=== PATIENT | male | born 1945 | race Caucasian/White ===

== ENCOUNTER 2017-09-17 11:20 | Outpatient (CLI) | payer MEDICARE, BC ==
[2017-09-17 12:24] LABS: #Basophils 0.1 thou/uL (0.0-0.2); #Eosinphils 0.1 thou/uL (0.0-0.7); #Lymphocytes 1.3 thou/uL (1.20-3.40); #Monocytes 0.8 thou/uL (0.11-0.59); #Neutrophils 4.6 thou/uL (1.40-6.50); %Basophils 0.9 % (0.0-1.0); %Eosinophils 1.2 % (0.0-10.0); %Lymphocytes 18.6 % (21.0-51.0); %Monocytes 11.3 % (0.0-10.0); %Neutrophils 67.9 % (42.0-75.0); Hemoglobin 15.7 g/dL (14.0-18.0); Mean Corpuscular HGB CONC 34.1 g/dL (32.0-36.0); Mean Corpuscular Hemoglobin 32.1 pg (27.0-31.0); Mean Corpuscular Volume 94.2 fl (80.0-94.0); Mean Platelet Volume 8.2 fL (7.4-10.4); Platelet Count 172 thou/uL (130-400); RBC Distribution Width 11.8 % (11.5-14.5); Red Blood Cell (RBC) Count 4.89 mill/uL (4.70-6.10); White Blood Cell (WBC) Count 6.8 thou/uL (4.8-10.8)
[2017-09-17 13:08] LABS: Anion Gap 13 mmol/L (10-20); BUN (Urea Nitrogen) 21 mg/dL (8.4-25.7); Calc. Creatinine Clearance 0 mL/min (70-130); Calcium 10.9 mg/dL (7.8-10.44); Carbon Dioxide 27 mmol/L (23-31); Chloride 104 mmol/L (98-107); Estimated GFR-MDRD 53; Glucose 112 mg/dL (83-110); Sodium 139 mmol/L (136-145)
== END 2017-09-17 11:21 | disposition home or self-care (01) ==
LOC: LABBT 11:20
PROVIDERS: ATTEND Surgery
DX: Z01.818 Encounter for other preprocedural examination (principal); K40.20 Bilateral inguinal hernia, without obstruction or gangrene, not specified as recurrent
CPT/HCPCS: 80048; 85025; 93005; 93010

== ENCOUNTER 2017-09-24 11:36 | Day surgery (SDC) | payer MEDICARE, BC ==
[2017-09-17 11:38] VITALS: BMI 30.9
[2017-09-24] MEDS ORDERED: Bupivacaine 0.25% HCL 30 ML VIAL ONE (12:03)
[2017-09-24] MEDS ORDERED: Midazolam HCl 2 mg/2 ml Vial ONE (12:25)
[2017-09-24] MEDS ORDERED: CEFAZOLIN/Water 2 GM/20 ML SYRINGE ONE (12:25)
[2017-09-24] MEDS ORDERED: Fentanyl 100 MCG/2 ML VIAL ONE (12:44)
[2017-09-24] MEDS ORDERED: Ketorolac Tromethamine 30 MG/ML VIAL ONE (13:31)
[2017-09-24] MEDS ORDERED: Dexamethasone 20 MG/5 ML VIAL ONE (13:31)
[2017-09-24] MEDS ORDERED: Propofol 200 MG/20 ML VIAL ONE (13:31)
[2017-09-24] MEDS ORDERED: Ondansetron HCl/PF 4 MG/2 ML Vial ONE (13:31)
[2017-09-24] MEDS ORDERED: Lidocaine 1% PF 5 ML VIAL ONE (13:31)
[2017-09-24] MEDS ORDERED: Glycopyrrolate 0.2 MG/ML 5 ML SYRINGE ONE (13:31)
[2017-09-24] MEDS ORDERED: Promethazine HCl 25 MG/ML VIAL ONE (15:42)
[2017-09-24] MEDS ORDERED: HYDROcodone/Acetaminophen 5/325 mg Tablet ONE (16:32)
--- NOTE | 2017-09-27 14:09 | OP ---
DATE OF SURGERY: 09/24/2017 PREOPERATIVE DIAGNOSIS: Bilateral inguinal hernia. POSTOPERATIVE DIAGNOSIS: Bilateral inguinal hernia. PROCEDURE: Laparoscopic da Keshav bilateral inguinal hernia repair with mesh, ProGrip. SURGEON: Dr. Crow Allison. ANESTHESIA: General. ESTIMATED BLOOD LOSS: Minimal. COMPLICATIONS: None. TECHNIQUE: The patient was taken to the operating room and placed supine on the table. After genera l anesthetic was obtained, the bilateral Groves catheter was placed. The abdomen and bilateral groins were shaved, prepped and draped in a sterile fashion. Curved incision made above the umbilicus. Ca utery was used to dissect down to and score the fascia. Abdominal cavity was entered bluntly using a Amy clamp followed by 12-mm Ethicon trocar. High-flow pneumoperitoneum was obtained. Left and ri ght abdominal 8 mm robot trocars were placed. The patient was placed in Trendelenburg position. The peritoneum was opened in the bilateral groins. The preperitoneal space was bluntly dissected all th e way down to the pubic tubercle medially and anterior superior iliac crest laterally. The iliopecti jesica line was fully exposed. The indirect hernia sacs were bilateral dissected high after the defect s up onto the peritoneum and full skeletonization of the cord structures was performed. There was no direct hernia and there was no femoral hernia, bilateral ProGrip mesh was brought in the medial labe led aspect was placed over the pubic tubercle. The mesh was unfolded to completely cover the direct, indirect, and femoral areas. The peritoneum is bilateral reapproximated using running Stratafix sut ure. All port sites were infiltrated using local anesthetic. All ports were removed under camera vi sualization without bleeding. Pneumoperitoneum was let down. PDS was used to close the fascial defe ct above the umbilicus. All incisions were irrigated and closed using 4-0 Monocryl and Dermabond. T he patient was en route to recovery in stable condition. All instrument counts, needle counts, and l ap counts were correct.
== END 2017-09-24 17:30 | disposition home or self-care (01) ==
LOC: SDC 11:36
PROVIDERS: ATTEND Surgery
PROC: 0YUA4JZ Supplement Bilateral Inguinal Region with Synthetic Substitute, Percutaneous Endoscopic Approach (ICD-10-PCS; principal; 2017-09-24)
PROC: 8E0W4CZ Robotic Assisted Procedure of Trunk Region, Percutaneous Endoscopic Approach (ICD-10-PCS; 2017-09-24)
DX: K40.20 Bilateral inguinal hernia, without obstruction or gangrene, not specified as recurrent (principal); E78.5 Hyperlipidemia, unspecified; I25.10 Atherosclerotic heart disease of native coronary artery without angina pectoris; F41.9 Anxiety disorder, unspecified; Z79.82 Long term (current) use of aspirin; Z79.899 Other long term (current) drug therapy; Z98.61 Coronary angioplasty status; Z95.0 Presence of cardiac pacemaker; Z95.818 Presence of other cardiac implants and grafts; Z90.79 Acquired absence of other genital organ(s); Z98.890 Other specified postprocedural states
CPT/HCPCS: J0131; J1100; J1885; J2001; J2250; J2405; J2550; J2704; J3010; S0020

== ENCOUNTER 2020-12-19 16:43 | Outpatient (CLI) | payer MEDICARE ==
[2020-12-19 17:20] LABS: Anion Gap 15 mmol/L (10-20); BUN (Urea Nitrogen) 22 mg/dL (8.4-25.7); Calc. Creatinine Clearance 0 mL/min (70-130); Calcium 9.5 mg/dL (7.8-10.44); Carbon Dioxide 25 mmol/L (23-31); Chloride 105 mmol/L (98-107); Glucose 138 mg/dL (83-110); Potassium 4.5 mmol/L (3.5-5.1); Sodium 140 mmol/L (136-145)
[2020-12-19 17:29] LABS: Hemoglobin 12.9 g/dL (13.5-17.5); Mean Corpuscular HGB CONC 34.1 g/dL (32.0-36.0); Mean Corpuscular Hemoglobin 31.5 pg (27.0-33.0); Mean Corpuscular Volume 92.4 fl (81.2-95.1); Mean Platelet Volume 11.5 fl (7.4-10.4); Platelet Count 163 10x3/uL (150-450); RBC Distribution Width 12.2 % (11.5-14.5); Red Blood Cell (RBC) Count 4.09 10x6/uL (4.32-5.72); White Blood Cell (WBC) Count 6.5 10x3/uL (3.5-10.5)
[2020-12-20 01:53] LABS: SARS-CoV-2 PCR by NAA Not Detected (NotDetected)
== END 2020-12-19 16:44 | disposition home or self-care (01) ==
LOC: LABBT 16:43
PROVIDERS: ATTEND Orthopaedic Surgery
DX: Z01.818 Encounter for other preprocedural examination (principal); S82.001A Unspecified fracture of right patella, initial encounter for closed fracture; Z20.822 Contact with and (suspected) exposure to COVID-19
CPT/HCPCS: 80048; 85027; U0003; U0005; 87635; 93005; 93010

== ENCOUNTER 2020-12-23 10:00 | Observation (INO) | payer MEDICARE, OTHER ==
[2020-12-23] MEDS ORDERED: Fentanyl 100 MCG/2 ML VIAL ONE ×3 (11:51→15:35)
[2020-12-23] MEDS ORDERED: PROPOFOL 200 MG/20 ML VIAL ONE (13:11)
[2020-12-23] MEDS ORDERED: Dexamethasone 20 MG/5 ML VIAL ONE (13:11)
[2020-12-23] MEDS ORDERED: Lidocaine 1% PF 5 ML VIAL ONE (13:11)
[2020-12-23] MEDS ORDERED: Ondansetron PF 4 MG/2 ML Vial ONE ×2 (13:11→15:10)
[2020-12-23] MEDS ORDERED: Bupivacaine PF 0.5% 30 ML VIAL ONE (14:08)
[2020-12-23] MEDS ORDERED: HYDROcodone/Acetaminophen 10/325 mg Tablet PO PRN (14:39)
[2020-12-23] MEDS ORDERED: Morphine 2 MG/ML VIAL SLOW IVP PRN (14:39)
[2020-12-23] MEDS ORDERED: Ondansetron PF 4 MG/2 ML Vial SLOW IVP PRN (14:39)
[2020-12-23] MEDS ORDERED: Communication Order-Pharmacy FS SCH (14:45)
[2020-12-23] MEDS ORDERED: Promethazine HCl 25 MG/ML VIAL ONE (15:22)
[2020-12-23 16:46] VITALS: BMI 28.0
[2020-12-23] MEDS ORDERED: HYDROcodone/Acetaminophen 10/325 mg Tablet ONE (17:14)
[2020-12-23] MEDS: HYDROcodone/Acetaminophen 10/325 mg Tablet PO PRN ×2 (17:15→23:58)
[2020-12-23] MEDS: CEFAZOLIN 2 GM in Premix Bag 1 BAG IVPB SCH (17:30)
[2020-12-23] MEDS: Aspirin 81 mg Enteric Coated Tablet PO SCH (20:05)
[2020-12-24] MEDS: CEFAZOLIN 2 GM in Premix Bag 1 BAG IVPB SCH ×2 (02:33→13:07)
[2020-12-24] MEDS: Aspirin 81 mg Enteric Coated Tablet PO SCH (07:53)
[2020-12-24] MEDS: HYDROcodone/Acetaminophen 10/325 mg Tablet PO PRN ×2 (07:53→13:09)
[2020-12-24 11:28] VITALS: BP 128/64; TEMP 98.9
== END 2020-12-24 18:28 | disposition home or self-care (01) ==
LOC: SDC 10:00 → T4-A 14:39
PROVIDERS: ADMIT Orthopaedic Surgery; ATTEND Orthopaedic Surgery
PROC: 0QSD04Z Reposition Right Patella with Internal Fixation Device, Open Approach (ICD-10-PCS; principal; 2020-12-23)
DX: S82.041A Displaced comminuted fracture of right patella, initial encounter for closed fracture (principal); E78.5 Hyperlipidemia, unspecified; I10 Essential (primary) hypertension; Z85.46 Personal history of malignant neoplasm of prostate; Z79.82 Long term (current) use of aspirin; Z79.899 Other long term (current) drug therapy; Z95.0 Presence of cardiac pacemaker; Z95.5 Presence of coronary angioplasty implant and graft; W01.0XXA Fall on same level from slipping, tripping and stumbling without subsequent striking against object, initial encounter; Y92.481 Parking lot as the place of occurrence of the external cause
CPT/HCPCS: 76000; 96365; 96376; G0378; J0690; J1100; J2405; J2550; J2704; J3010; S0020

== ENCOUNTER 2022-11-02 12:37 | Outpatient (CLI) | payer MEDICARE ==
[2022-11-02 14:37] LABS: Hemoglobin 14.9 g/dL (13.5-17.5); Mean Corpuscular HGB CONC 33.7 g/dL (32.0-36.0); Mean Corpuscular Hemoglobin 31.6 pg (27.0-33.0); Mean Corpuscular Volume 93.6 fl (81.2-95.1); Mean Platelet Volume 11.4 fl (7.4-10.4); Platelet Count 170 10x3/uL (150-450); RBC Distribution Width 12.5 % (11.5-14.5); Red Blood Cell (RBC) Count 4.72 10x6/uL (4.32-5.72); White Blood Cell (WBC) Count 5.7 10x3/uL (3.5-10.5)
[2022-11-02 14:41] LABS: PTT 30.5 sec (22.0-33.0); Prothrombin Time 10.9 sec (9.5-12.1)
[2022-11-02 15:12] LABS: Anion Gap 16 mmol/L (10-20); BUN (Urea Nitrogen) 31 mg/dL (8.4-25.7); Calc. Creatinine Clearance 0 mL/min (70-130); Calcium 10.4 mg/dL (7.8-10.44); Carbon Dioxide 24 mmol/L (23-31); Chloride 106 mmol/L (98-107); Estimated GFR 50; Glucose 98 mg/dL (83-110); Potassium 4.8 mmol/L (3.5-5.1); Sodium 141 mmol/L (136-145)
== END 2022-11-02 12:38 | disposition home or self-care (01) ==
LOC: LABBT 12:37
PROVIDERS: ATTEND Internal Medicine Cardiovascular Disease
DX: Z01.812 Encounter for preprocedural laboratory examination (principal)
CPT/HCPCS: 80048; 85027; 85610; 85730

== ENCOUNTER 2022-11-04 09:16 | Day surgery (SDC) | payer MEDICARE ==
[2022-11-02 15:00] VITALS: BMI 28.2
[2022-11-04] MEDS ORDERED: Heparin 10,000 UNITS/ 10 ML VIAL ONE (09:23)
[2022-11-04] MEDS ORDERED: Protamine Sulfate 50 MG/5 ML VIAL ONE (09:23)
[2022-11-04] MEDS ORDERED: Isoproterenol 0.2 MG/1 ML AMP ONE (09:23)
[2022-11-04] MEDS ORDERED: Heparin 25,000 units/D5W 500 ML ONE (09:23)
[2022-11-04] MEDS ORDERED: FENTANYL 50 MCG/ML 1 ML VIAL ONE (12:24)
[2022-11-04] MEDS ORDERED: SUGAMMADEX SODIUM 200 MG/2 ML VIAL ONE ×2 (12:25→15:33)
[2022-11-04] MEDS ORDERED: Propofol 500 MG/50 ML VIAL ONE (12:25)
[2022-11-04] MEDS ORDERED: Midazolam HCl 2 mg/2 ml Vial ONE (12:32)
[2022-11-04] MEDS ORDERED: PHENYLEPHRINE-NS 100 MCG/ML 10 ML SYRINGE ONE (12:39)
[2022-11-04] MEDS ORDERED: Ondansetron PF 4 MG/2 ML Vial ONE (12:39)
[2022-11-04] MEDS ORDERED: Esmolol 100 MG/10 ML VIAL ONE (12:39)
[2022-11-04] MEDS ORDERED: PROPOFOL 200 MG/20 ML VIAL ONE (12:39)
[2022-11-04] MEDS ORDERED: Lidocaine 1% PF 5 ML VIAL ONE (12:39)
[2022-11-04] MEDS ORDERED: Dexamethasone 20 MG/5 ML VIAL ONE (12:39)
[2022-11-04] MEDS ORDERED: Rocuronium Bromide 10 MG/ML (10ML VIAL) ONE (12:39)
[2022-11-04] MEDS ORDERED: Rocuronium Bromide 50 MG/5 ML VIAL ONE (13:53)
[2022-11-04] MEDS ORDERED: CEFAZOLIN 1 GM VIAL ONE (19:20)
== END 2022-11-04 20:00 | disposition home or self-care (01) ==
LOC: SDC 09:16
PROVIDERS: ATTEND Internal Medicine Cardiovascular Disease
PROC: B244ZZ3 Ultrasonography of Right Heart, Intravascular (ICD-10-PCS; principal; 2022-11-04)
PROC: 02583ZZ Destruction of Conduction Mechanism, Percutaneous Approach (ICD-10-PCS; 2022-11-04)
PROC: 02K83ZZ Map Conduction Mechanism, Percutaneous Approach (ICD-10-PCS; 2022-11-04)
PROC: 4A023FZ Measurement of Cardiac Rhythm, Percutaneous Approach (ICD-10-PCS; 2022-11-04)
PROC: 4A0234Z Measurement of Cardiac Electrical Activity, Percutaneous Approach (ICD-10-PCS; 2022-11-04)
DX: I48.4 Atypical atrial flutter (principal); I49.5 Sick sinus syndrome; I25.10 Atherosclerotic heart disease of native coronary artery without angina pectoris; I10 Essential (primary) hypertension; E78.5 Hyperlipidemia, unspecified; K21.9 Gastro-esophageal reflux disease without esophagitis; Z79.01 Long term (current) use of anticoagulants; Z79.620 Long term (current) use of immunosuppressive biologic; Z79.82 Long term (current) use of aspirin; Z79.84 Long term (current) use of oral hypoglycemic drugs; Z79.899 Other long term (current) drug therapy; Z95.0 Presence of cardiac pacemaker; Z95.5 Presence of coronary angioplasty implant and graft
CPT/HCPCS: 85347 ×2; 93005; 93623; 93656; J3010; C1732; C1759; C1760; C1894; J0690; J1100; J1644; J2250; J2405; J2704; J2720